=== PATIENT | male | born 1985 | race Caucasian/White ===

== ENCOUNTER 2016-12-13 07:21 | Emergency (ER) | payer MEDICAID ==
[~2016-12-13] VITALS: Ht 180.3 cm; Wt 90.0 kg
[2016-12-13 07:23] VITALS: Ht 180.3 cm; Wt 90.0 kg
[2016-12-13] MEDS ORDERED: ONDANSETRON 4 MG INJ IV STA (07:23)
[2016-12-13] MEDS ORDERED: SOD CHLORIDE 0.9% 1,000 ML IV STA (07:23)
[2016-12-13] MEDS ORDERED: NEOMYC/POLYMYX/BACIT 30 GM OINT TOP ONE (07:30)
[2016-12-13] MEDS ORDERED: LORAZEPAM 2 MG INJ IV ONE (07:30)
[2016-12-13 07:50] LABS: ADD SCAN DIFF NO
[2016-12-13 07:55] LABS: BASOPHILS % 0.7 % (0.0-2.0); EOSINOPHILS % 0.5 % (0.0-7.0); HEMOGLOBIN 15.7 g/dl (14.0-18.0); LYMPHOCYTES # 1.2 10^3/ul (0.8-2.9); LYMPHOCYTES % 20.3 % (15.0-51.0); MEAN CORPUSCULAR HEMOGLOBIN 33.8 pg (29.0-33.0); MEAN CORPUSCULAR HGB CONC 34.1 g/dl (32.0-37.0); MEAN CORPUSCULAR VOLUME 99.1 fl (82.0-101.0); MEAN PLATELET VOLUME 10.4 fl (7.4-10.4); MONOCYTE # 0.7 10^3/ul (0.3-0.9); MONOCYTES % 11.6 % (0.0-11.0); NEUTROPHILS % 66.1 % (39.0-77.0); PLATELET COUNT 170 10^3/UL (140-415); RED BLOOD COUNT 4.64 10^6/ul (4.70-6.10); RED CELL DISTRIBUTION WIDTH 14.3 % (11.5-14.5)
[2016-12-13 08:13] LABS: ALBUMIN 5.3 g/dl (3.3-4.9)
--- NOTE | 2016-12-13 08:15 | RADRPT ---
PROCEDURE: Chest Radiograph. CLINICAL INDICATION: Seizure TECHNIQUE: Single frontal chest radiograph. COMPARISON: None available FINDINGS: The cardiomediastinal silhouette is within normal limits. No infiltrate or effusion is seen. Th e bones are intact. IMPRESSION: 1. Unremarkable chest radiograph. RPTAT: [facility] .Tyler Wells MD, MD Date Time Electronically viewed and signed by .Tyler Wells MD, on 12/13/2016 08:15 .B/
[2016-12-13 08:16] LABS: ALBUMIN/GLOBULIN RATIO 1.35; BILIRUBIN,INDIRECT 1.1 mg/dl (0-1.1); BILIRUBIN,TOTAL 1.1 mg/dl (0.2-1.3); CREATININE 0.97 mg/dl (0.61-1.24); TOTAL PROTEIN 9.2 g/dl (6.1-8.1)
[2016-12-13 08:17] LABS: CALCIUM 9.3 mg/dl (8.4-10.2)
--- NOTE | 2016-12-13 08:25 | RADRPT ---
PROCEDURE: CT head without Contrast CLINICAL INDICATION: Seizure with fall TECHNIQUE: Transaxial images were made through the head on a multi-slice scanner without intraveno us contrast. Coronal and sagittal images were subsequently reformatted. One or more of the following dose reduction techniques were used: - Automated exposure control. - Adjustment of the mA and/or kV according to patient size. - Use of iterative reconstruction technique. Radiation dose: CTDIvol = 96.04 mGy; DLP = 1171.28 mGy-cm. COMPARISON: None FINDINGS: The calvarium appears intact. There is a medial blowout fracture involving the right orbit. There i s a hematoma involving the right frontal scalp. With mucoperiosteal thickening is noted within the maxillary sinuses and to a lesser extent within the ethmoid air cells. The mastoid air cells are we ll-aerated.. The ventricles are mildly prominent but proportionate to the prominent fissures and sulci compatible with mild diffuse cortical atrophy. There is no midline shift. No intracranial bleed, mass, or extra-axial fluid collection is identified. There is good ulloa-white matter differentiation. IMPRESSION: 1. Medial blowout fracture involving the right lamina papyracea. No skull fracture is evident. 2. Right frontal scalp hematoma. 3. Mild diffuse cortical atrophy without evidence of an acute intracranial injury. 4. Minimal inflammatory changes involving the maxillary and ethmoid sinuses. Physician Kishore Date Time Electronically viewed and signed by Physician Kishore on 12/13/2016 08:24 /
--- NOTE | 2016-12-13 08:27 | RADRPT ---
PROCEDURE: CT C-Spine without Contrast CLINICAL INDICATION: Seizure, fall TECHNIQUE: Transaxial images were obtained through the cervical spine on a multi sliced scanner wit hout contrast. Sagittal and coronal re-formations were subsequently reformatted. One or more of the following dose reduction techniques were used: - Automated exposure control. - Adjustment of the mA and/or kV according to patient size. - Use of iterative reconstruction technique. Radiation dose: CTDIvol = 96.04 mGy; DLP = 1871.28 mGy-cm. COMPARISON: None FINDINGS: Osseous structures: Appear intact with no fracture or destructive process identified. Alignment: There is straightening of the normal lordotic curvature to the cervical spine without sub luxation. Disk spaces, endplates, and facet joints: Are well maintained. No significant disk bulge or herniat ion is identified. There is no significant stenosis to the central canal hour to a nerve root canal. Soft tissues: Are unremarkable. IMPRESSION: 1. Straightening of the normal lordotic curvature to the cervical spine without subluxation. 2. No fracture or spinal stenosis is identified. Physician Kishore Date Time Electronically viewed and signed by Physician Kishore on 12/13/2016 08:27 /
[2016-12-13 08:28] LABS: TROPONIN-I 0.012 ng/ml (0.00-0.12)
[2016-12-13] MEDS ORDERED: POTASSIUM CHLORIDE (SR) 20 MEQ TAB PO STA (08:30)
--- NOTE | 2016-12-13 08:32 | RADRPT ---
PROCEDURE: CT Maxillofacial without Contrast CLINICAL INDICATION: Seizure, fall TECHNIQUE: Transaxial images were obtained through the maxillofacial region on a multi-slice scann er without the intravenous contrast administration. Sagittal and coronal re-formations were subseque ntly reconstructed. One or more of the following dose reduction techniques were used: - Automated exposure control. - Adjustment of the mA and/or kV according to patient size. - Use of iterative reconstruction technique. Radiation dose: CTDIvol = 29.53 mGy; DLP = 590 8.85 mGy-cm. COMPARISON: No prior studies are available for comparison. FINDINGS: Osseous structures: There is a medial blowout fracture involving the lamina papyracea of the right o rbit. The osseous elements otherwise appear intact. Paranasal sinuses: There is considerable mucoperiosteal thickening involving the maxillary sinuses, greater on the right than the left. Minimal mucoperiosteal thickening is seen within the ethmoid ai r cells bilaterally. The frontal and sphenoid sinuses are well-aerated. Mastoid air cells: Appear well pneumatized. Temporomandibular joints: Appear unremarkable. Orbits: Aside from the right medial blowout fracture, the ocular globes, optic nerves, and intraorbi ingrid contents appear unremarkable. Soft tissues: There is a right frontal scalp hematoma. IMPRESSION: 1. Medial blowout fracture involving the lamina papyracea of the right orbit. The ocular globes, o ptic nerves, and intraorbital contents appear unremarkable. 2. Inflammatory changes involving the maxillary sinuses and to a much lesser extent the ethmoid sin uses. 3. Right frontal scalp hematoma. Physician Kishore Date Time Electronically viewed and signed by Physician Kishore on 12/13/2016 08:32 /
[2016-12-13] MEDS ORDERED: LEVE-5 PO (09:25)
[2016-12-13] MEDS ORDERED: CEPH500C PO (09:25)
[2016-12-13] MEDS ORDERED: IBUP-1542 PO (09:25)
[2016-12-13] MEDS ORDERED: SOD CHLORIDE 0.9% 1,000 ML IV ONE (09:30)
[2016-12-13] MEDS ORDERED: ENALAPRILAT 1.25 MG INJ IV ONE (11:00)
[2016-12-13 11:15] VITALS: BP 160/95; PULSE 102; RESP 16; TEMP 97.8
--- NOTE | 2016-12-13 13:03 | ERD ---
ER Documentation Chief Complaint Date/Time DATE: 12/13/16 TIME: 12:55 Chief Complaint BIB RA FOR EVAL OF HEAD INJURY S/P FALL. LAC TO FOREHEAD HPI 31-year-old man brought in by EMS from home for tonic-clonic seizure activity. Patient has a long history of alcoholism and has been drinking last night, it seems he suffered an alcohol withdrawal seizure and sustained abrasions contusions to the scalp and face. The episode was witnessed by a friend who was not at the emergency department. Patient did not lose bowel or bladder control, has had no fevers or chills, no complaints of chest pain or shortness of breath. Patient denies suicidal homicidal ideation. ROS All systems reviewed and are negative except as per history of present illness. Medications Home Meds Active Scripts Ibuprofen* (Ibuprofen*) 600 Mg Tablet, 600 MG PO Q8 for PAIN AND/OR INFLAMMATION , #30 TAB Prov:ESTRELLA NOLAN MD 12/13/16 Cephalexin* (Cephalexin*) 500 Mg Capsule, 500 MG PO Q8 for 3 Days, CAP Prov:ESTRELLA NOLAN MD 12/13/16 Levetiracetam* (Keppra*) 500 Mg Tablet, 500 MG PO BID, #60 TAB Prov:ESTRELLA NOLAN MD 12/13/16 Allergies Allergies: Coded Allergies: No Known Allergy (Unverified , 12/18/12) PMhx/Soc Alcoholism History of Surgery: No Anesthesia Reaction: No Hx Neurological Disorder: No Hx Respiratory Disorders: No Hx Cardiac Disorders: No Hx Psychiatric Problems: No Hx Miscellaneous Medical Probl: No Hx Alcohol Use: No Hx Substance Use: No Hx Tobacco Use: No Smoking Status: Current every day smoker FmHx Family History: No diabetes Physical Exam Vitals Vital Signs Date Time Temp Pulse Resp B/P Pulse Ox O2 Delivery O2 Flow Rate FiO2 12/13/16 11:15 97.8 102 16 160/95 99 Room Air 12/13/16 09:35 97.8 115 18 161/116 99 Room Air 12/13/16 07:23 97.8 129 19 173/119 99 Physical Exam GENERAL: Well-developed, intoxicated man, afebrile HEENT: Multiple superficial abrasions to the face and scalp, no lacerations, no cervical spine tenderness, alcohol on breath NEURO: Alert and oriented 2, pupils equal round reactive to light, cranial nerves II through XII intact bilaterally, lethargic but arousable, no focal deficits or facial asymmetry, sensation intact distally Strength 5/5 in upper and lower extremities bilaterally CARDIAC: Tachycardic and regular, no murmurs rubs or gallops LUNGS: Clear bilaterally no wheezing crackles or stridor ABDOMEN: Soft nontender, no guarding, no rigidity, no rebound, no psoas sign no obturator sign. Normoactive bowel sounds SKIN: Warm and dry to touch, multiple superficial facial and scalp abrasions and contusion to the nasal bridge, no lacerations no target lesions, and without ulcers EXTREMITIES: No clubbing cyanosis or edema, calves are bilaterally symmetrical, no Homans sign, no popliteal cord sign. Distal pulses equal and bilateral PSYCH: Normal affect without agitation or irritability Result Diagram: 12/13/1673912/13/16 0740 Results 24 hrs Laboratory Tests Test 12/13/16 07:40 White Blood Count 6.010^3/ul Red Blood Count 4.6410^6/ul Hemoglobin 15.7g/dl Hematocrit 46.0% Mean Corpuscular Volume 99.1fl Mean Corpuscular Hemoglobin 33.8pg Mean Corpuscular Hemoglobin Concent 34.1g/dl Red Cell Distribution Width 14.3% Platelet Count 24580^3/UL Mean Platelet Volume 10.4fl Neutrophils % 66.1% Lymphocytes % 20.3% Monocytes % 11.6% Eosinophils % 0.5% Basophils % 0.7% Nucleated Red Blood Cells % 0.0/100WBC Neutrophils # 4.010^3/ul Lymphocytes # 1.210^3/ul Monocytes # 0.710^3/ul Eosinophils # 0.010^3/ul Basophils # 0.010^3/ul Nucleated Red Blood Cells # 0.010^3/ul Sodium Level 137mmol/L Potassium Level 3.0mmol/L Chloride Level 93mmol/L Carbon Dioxide Level 15mmol/L Anion Gap 32 Blood Urea Nitrogen 8mg/dl Creatinine 0.97mg/dl Glucose Level 159mg/dl Calcium Level 9.3mg/dl Total Bilirubin 1.1mg/dl Direct Bilirubin 0.00mg/dl Indirect Bilirubin 1.1mg/dl Aspartate Amino Transf (AST/SGOT) 402IU/L Alanine Aminotransferase (ALT/SGPT) 134IU/L Alkaline Phosphatase 80IU/L Troponin I 0.012ng/ml Total Protein 9.2g/dl Albumin 5.3g/dl Globulin 3.90g/dl Albumin/Globulin Ratio 1.35 Lipase 237U/L Current Medications Medications (Trade) Dose Ordered Sig/Vernell Route PRN Reason Start Time Stop Time Status Last Admin Dose Admin Sodium Chloride (NS) 1,000 ml @ 1,000 mls/hr Q1H STAT IV 12/13/16 07:23 12/13/16 08:22 DC 12/13/16 07:41 Lorazepam (Ativan) 1 mg ONCE ONCE IV 12/13/16 07:30 12/13/16 07:31 DC 12/13/16 07:41 Neomycin/ Polymyxin/ Bacitracin (Neosporin Topical Oint) 1 applic ONCE ONCE TOP 12/13/16 07:30 12/13/16 07:31 DC 12/13/16 07:42 Ondansetron HCl (Zofran Inj) 4 mg ONCE STAT IV 12/13/16 07:23 12/13/16 07:29 DC 12/13/16 07:41 Potassium Chloride 40 meq 40 meq ONCE STAT PO 12/13/16 08:30 12/13/16 08:47 DC 12/13/16 08:42 Sodium Chloride (NS) 1,000 ml @ 1,000 mls/hr Q1H ONCE IV 12/13/16 09:30 12/13/16 10:29 DC 12/13/16 09:34 Enalaprilat (Vasotec Iv) 1.25 mg ONCE ONCE IV 12/13/16 11:00 12/13/16 11:01 DC 12/13/16 10:38 Procedures/MDM IV line was established patient was placed on monitor and storage bin tender rhythm strip revealed a sinus tachycardia at about 120 bpm with upright P and T waves. Patient was afebrile. EKG performed, read by me revealed a sinus tachycardia at 120 bpm, normal axis, narrow QRS complex, no concerning ST elevations or depressions noted. CT scan of the brain was performed there was no acute bleed mass or shift although there was scalp hematoma noted. Please refer to radiologist dictation for full report. CT scan of the cervical spine was performed no acute fracture dislocation. CT scan of the maxillofacial bones was performed there was a right orbital blowout fracture of the lamina papyracea of the right orbit. Please refer to radiologist dictation for full report. One AP view of the chest performed, read by me reveals no acute infiltrates, normal mediastinum, sharp costophrenic and cardiac borders, no air under the diaphragm. Otherwise unremarkable chest x-ray. CBC was within normal notes, electrolytes revealed mild hypokalemia, liver function tests are normal, troponin was negative. I administered 1 L normal saline intravenously, lorazepam 1 mg IV and Zofran 4 mg with good response. Patient states his tetanus immunization was updated 2 years ago, and triple antibiotic ointment was applied to all his abrasions, wounds were irrigated with normal saline and dressed with gauze as well. For hypertension patient received enalapril 1.25 mg IV with good response. His hypertension may have been secondary to alcohol withdrawal although it did improve and I told him to follow-up with his PMD. Differential diagnoses considered, included but not limited to acute coronary syndrome, pulmonary embolism, aortic dissection, abdominal aortic aneurysm, sepsis, stroke, meningitis, encephalitis, pneumonia, appendicitis, cholecystitis , bowel obstruction, pyelonephritis, nephrolithiasis, cystitis, as well as metabolic, hematologic, and electrolyte abnormalities. As well as abscess, cellulitis, fractures, and dislocations. Patient feels much better at this time, and vital signs are normal, symptoms have improved. I did give strict instructions to return to the ED if symptoms continue or worsen, patient will otherwise follow-up with primary care physician. Patient understood instructions and agreed to plan. Departure Diagnosis: Primary Impression: Acute head injury Encounter type: initial encounter Qualified Code: S09.90XA - Acute head injury, initial encounter Additional Impressions: Seizure Alcohol withdrawal Complication of substance-induced condition: uncomplicated Qualified Code: F10.230 - Alcohol withdrawal, uncomplicated Alcohol abuse Dehydration Right orbital fracture Encounter type: initial encounter Fracture type: closed Qualified Code: S02.81XA - Right orbital fracture, closed, initial encounter Ruled Out: Abrasion Condition: Good Patient Instructions: Abrasion, Alcohol Withdrawal Seizure, Alcohol Withdrawal ESTRELLA NOLAN MD December 13, 2016 13:03
== END 2016-12-13 11:21 | disposition home or self-care (01) ==
LOC: E/R 07:21
DX: S09.90XA Unspecified injury of head, initial encounter (principal); R40.2252 Coma scale, best verbal response, oriented, at arrival to emergency department; R56.9 Unspecified convulsions; F10.230 Alcohol dependence with withdrawal, uncomplicated; E86.0 Dehydration; S02.81XA Fracture of other specified skull and facial bones, right side, initial encounter for closed fracture; F17.210 Nicotine dependence, cigarettes, uncomplicated; R40.2362 Coma scale, best motor response, obeys commands, at arrival to emergency department; R40.2142 Coma scale, eyes open, spontaneous, at arrival to emergency department; W18.39XA Other fall on same level, initial encounter; Y92.9 Unspecified place or not applicable
CPT/HCPCS: 36415; 70450; 70486; 71010; 72125; 80053; 83690; 84484; 85025; 93005; 96374; 96375; J2060; J2405; J7030; Z7502; Z7610